=== PATIENT | male | born 1940 | race Caucasian/White ===

== ENCOUNTER 2021-08-08 12:47 | Inpatient (IN) ==
[2021-08-08] MEDS ORDERED: SODIUM CHLORIDE 0.9% 1,000 ML IV STA (13:10)
[2021-08-08 13:20] LABS: Basophils # 0.1 10*3/uL (0.0-0.2); Basophils % 0.4 % (0.0-0.8); Eosinophils # 1.4 10*3/uL (0.0-0.87); Eosinophils % 12.6 % (0.00-10.9); Hematocrit 37.7 VOL% (42.0-52.0); Hemoglobin 12.5 GM/DL (14.0-18.0); Immature Granulocytes % 1.6 %; Immature Granulocytes Absolute 0.18 #; Lymphocytes # 1.4 10*3/uL (1.4-4.0); Lymphocytes % 12.7 % (21.2-54.2); Mean Corpuscular HGB Conc 33.2 GM/DL (32-36); Mean Corpuscular Volume 97.9 FL (87-102); Mean Platelet Volume 9.7 FL (9.6-12.0); Monocytes % 9.2 % (1.7-12.7); Neutrophils % 63.5 % (38.7-73.9); Platelet Count 493 T/CUMM (130-400); Red Blood Count 3.85 MC/CUMM (3.8-5.5); Red Cell Distribution Width 14.6 % (9.3-17.3); White Blood Count 11.3 T/CUMM (4-12)
[2021-08-08 13:32] LABS: INR 1.1; Partial Thromboplastin Time 28.1 SECS (23.8-32.1)
[2021-08-08 13:50] LABS: Eosinophils 12 % (0-10); Lymphocytes 11 % (20-55); Total Cells Counted 100
[2021-08-08 13:51] LABS: Albumin 2.9 G/DL (3.4-5.0); Bilirubin,Total 0.5 MG/DL (0.20-1.00); Calcium 9.8 MG/DL (8.5-10.1); Osmolality,Calculated 280.4 MOS/KG (273-304); Potassium 3.6 MMOL/L (3.5-5.1); Total Protein 7.1 G/DL (6.4-8.2)
[2021-08-08 13:53] LABS: Platelet Estimate Increased; Reactive Lymphocytes Slight
[2021-08-08 13:59] LABS: Mucus,Urine Occasional /LPF (Occasional); RBC,Urine 44 /HPF (0-4); Squamous Epithelial Cell,Urine Occasional /HPF (0-10)
[2021-08-08] MEDS ORDERED: ONDANSETRON 4 MG/2 ML VIAL IV PRN (14:02)
[2021-08-08 14:03] LABS: Bilirubin,Urine Negative (Negative); Blood, Urine Negative (Negative); Glucose,Urine (UA) Negative (Negative); Ketones,Urine Negative (Negative); Nitrite,Urine Negative (Negative); Protein,Urine Negative (Negative); Urine Appearance Clear (Clear); Urine Color Yellow (Yellow); Urine Urobilinogen 0.2 eU/dL (<2.0)
[2021-08-08 14:24] LABS: Barbiturates Screen,Urine Negative (Negative); Benzodiazepines Screen,Urine Negative (Negative); Cannabinoid Screen,Urine Negative (Negative); Opiate Screen,Urine Positive (Negative); Phencyclidine Screen,Urine Negative (Negative)
[2021-08-08] MEDS ORDERED: POLYCARBOPHIL 625 MG TABLET PO PRN (14:34)
[2021-08-08] MEDS: SODIUM CHLORIDE 0.9% 1,000 ML IV SCH ×2 (14:59→23:55)
[2021-08-08] MEDS ORDERED: ZIPRASIDONE 20 MG/1 ML VIAL IM STA (15:36)
[2021-08-08] MEDS: TAMSULOSIN 0.4 MG CAPSULE PO SCH (20:22)
[2021-08-08] MEDS: DOCUSATE SODIUM 100 MG CAPSULE PO SCH (20:22)
[2021-08-08] MEDS: ATORVASTATIN 10 MG TABLET PO SCH (20:22)
[2021-08-08] MEDS: METOPROLOL TARTRATE 50 MG TABLET PO SCH (20:23)
[2021-08-08] MEDS ORDERED: QUEtiapine 25 MG TABLET PO SCH (21:00)
[2021-08-08] MEDS: VITAMIN E 1000 UNIT CAPSULE PO SCH (22:16)
[2021-08-08] MEDS: ZIPRASIDONE 20 MG/1 ML VIAL IM PRN (23:14)
[2021-08-09] MEDS: HALOPERIDOL 5 MG/ML AMP IM PRN ×2 (01:44→11:46)
[2021-08-09 04:37] LABS: Basophils # 0.1 10*3/uL (0.0-0.2); Basophils % 0.5 % (0.0-0.8); Eosinophils # 1.8 10*3/uL (0.0-0.87); Eosinophils % 20.1 % (0.00-10.9); Hematocrit 35.1 VOL% (42.0-52.0); Hemoglobin 11.4 GM/DL (14.0-18.0); Immature Granulocytes Absolute 0.18 #; Lymphocytes # 2.1 10*3/uL (1.4-4.0); Lymphocytes % 23.4 % (21.2-54.2); Mean Corpuscular HGB Conc 32.5 GM/DL (32-36); Mean Corpuscular Volume 99.2 FL (87-102); Mean Platelet Volume 9.9 FL (9.6-12.0); Monocytes # 0.8 10*3/uL (0.11-0.8); Monocytes % 8.9 % (1.7-12.7); Neutrophils % 45.1 % (38.7-73.9); Platelet Count 398 T/CUMM (130-400); Red Blood Count 3.54 MC/CUMM (3.8-5.5); Red Cell Distribution Width 14.7 % (9.3-17.3); White Blood Count 9.1 T/CUMM (4-12)
[2021-08-09 04:57] LABS: Osmolality,Calculated 292.4 MOS/KG (273-304); Potassium 3.9 MMOL/L (3.5-5.1)
[2021-08-09 04:58] LABS: Atypical Lymphocytes Few; Eosinophils 21 % (0-10); Lymphocytes 23 % (20-55); Total Cells Counted 100
[2021-08-09 04:59] LABS: Platelet Estimate Normal
[2021-08-09] MEDS ORDERED: PANTOPRAZOLE 40 MG TABLET PO SCH (06:30)
[2021-08-09] MEDS: SODIUM CHLORIDE 0.9% 1,000 ML IV SCH ×2 (08:45→17:00)
[2021-08-09] MEDS: METOPROLOL TARTRATE 50 MG TABLET PO SCH ×2 (08:46→20:52)
[2021-08-09] MEDS: MULTIVITAMIN (CENTRUM) TABLET PO SCH (08:46)
[2021-08-09] MEDS: CALCIUM (CARBONATE)/VITAMIN D 600 MG-400 UNIT TABLET PO SCH (08:46)
[2021-08-09] MEDS: SERTRALINE 50 MG TABLET PO SCH (08:46)
[2021-08-09] MEDS: ASCORBIC ACID 500 MG TABLET PO SCH (08:46)
[2021-08-09] MEDS: QUEtiapine 25 MG TABLET PO SCH ×2 (08:46→20:52)
[2021-08-09] MEDS: ASPIRIN EC 81 MG TABLET PO SCH (08:46)
[2021-08-09] MEDS: DOCUSATE SODIUM 100 MG CAPSULE PO SCH ×2 (08:46→20:52)
[2021-08-09] MEDS ORDERED: NON-FORMULARY MEDICATION (Omeprazole 20 MG capsule,delayed release(DR/EC)) PO SCH (09:00)
[2021-08-09] MEDS: VITAMIN E 1000 UNIT CAPSULE PO SCH ×2 (10:18→21:00)
[2021-08-09] MEDS: ACETAMINOPHEN 325 MG TABLET PO PRN (10:39)
[2021-08-09] MEDS: ZIPRASIDONE 20 MG/1 ML VIAL IM PRN (18:39)
[2021-08-09] MEDS: TAMSULOSIN 0.4 MG CAPSULE PO SCH (20:52)
[2021-08-09] MEDS: ATORVASTATIN 10 MG TABLET PO SCH (20:52)
[2021-08-10] MEDS: SODIUM CHLORIDE 0.9% 1,000 ML IV SCH ×2 (01:45→09:52)
[2021-08-10] MEDS: ASPIRIN EC 81 MG TABLET PO SCH (09:50)
[2021-08-10] MEDS: CALCIUM (CARBONATE)/VITAMIN D 600 MG-400 UNIT TABLET PO SCH (09:51)
[2021-08-10] MEDS: METOPROLOL TARTRATE 50 MG TABLET PO SCH ×2 (09:51→20:57)
[2021-08-10] MEDS: MULTIVITAMIN (CENTRUM) TABLET PO SCH (09:51)
[2021-08-10] MEDS: ASCORBIC ACID 500 MG TABLET PO SCH (09:51)
[2021-08-10] MEDS: QUEtiapine 25 MG TABLET PO SCH ×2 (09:51→20:57)
[2021-08-10] MEDS: DOCUSATE SODIUM 100 MG CAPSULE PO SCH ×2 (09:51→20:58)
[2021-08-10] MEDS: SERTRALINE 50 MG TABLET PO SCH (09:51)
[2021-08-10] MEDS: methylPREDNISolone SOD SUC 40 MG/1 ML VIAL IV SCH (09:52)
[2021-08-10] MEDS: VITAMIN E 1000 UNIT CAPSULE PO SCH ×2 (10:58→20:59)
[2021-08-10] MEDS ORDERED: BISACODYL 10 MG SUPP RECTAL ONE (13:00)
[2021-08-10] MEDS: ACETAMINOPHEN 325 MG TABLET PO PRN (15:50)
[2021-08-10] MEDS: ALUMINUM/MAGNES/SIMETH MAX STR 30 ML UDCUP PO PRN (18:38)
[2021-08-10] MEDS: ATORVASTATIN 10 MG TABLET PO SCH (20:58)
[2021-08-10] MEDS: TAMSULOSIN 0.4 MG CAPSULE PO SCH (20:58)
[2021-08-10] MEDS: APIXABAN 5 MG TABLET PO SCH (20:59)
[2021-08-11] MEDS: ALUMINUM/MAGNES/SIMETH MAX STR 30 ML UDCUP PO PRN (03:34)
[2021-08-11] MEDS: METOPROLOL TARTRATE 50 MG TABLET PO SCH ×2 (09:45→21:11)
[2021-08-11] MEDS: CALCIUM (CARBONATE)/VITAMIN D 600 MG-400 UNIT TABLET PO SCH (09:45)
[2021-08-11] MEDS: APIXABAN 5 MG TABLET PO SCH ×2 (09:45→21:11)
[2021-08-11] MEDS: MULTIVITAMIN (CENTRUM) TABLET PO SCH (09:45)
[2021-08-11] MEDS: DOCUSATE SODIUM 100 MG CAPSULE PO SCH ×2 (09:46→21:11)
[2021-08-11] MEDS: ASPIRIN EC 81 MG TABLET PO SCH (09:46)
[2021-08-11] MEDS: QUEtiapine 25 MG TABLET PO SCH ×2 (09:46→21:12)
[2021-08-11] MEDS: SERTRALINE 50 MG TABLET PO SCH (09:46)
[2021-08-11] MEDS: ASCORBIC ACID 500 MG TABLET PO SCH (09:47)
[2021-08-11] MEDS: methylPREDNISolone SOD SUC 40 MG/1 ML VIAL IV SCH (10:12)
[2021-08-11] MEDS: VITAMIN E 1000 UNIT CAPSULE PO SCH ×2 (10:13→21:16)
[2021-08-11] MEDS ORDERED: TUBERCULIN SKIN TEST 0.1 ML SYRINGE INTRADERM ONE (13:10)
[2021-08-11] MEDS: ATORVASTATIN 10 MG TABLET PO SCH (21:11)
[2021-08-11] MEDS: TAMSULOSIN 0.4 MG CAPSULE PO SCH (21:12)
[2021-08-12 05:14] LABS: Basophils # 0.1 10*3/uL (0.0-0.2); Basophils % 0.6 % (0.0-0.8); Eosinophils # 2.9 10*3/uL (0.0-0.87); Eosinophils % 20.4 % (0.00-10.9); Hematocrit 35.3 VOL% (42.0-52.0); Hemoglobin 11.5 GM/DL (14.0-18.0); Immature Granulocytes Absolute 0.14 #; Lymphocytes # 2.2 10*3/uL (1.4-4.0); Lymphocytes % 15.1 % (21.2-54.2); Mean Corpuscular HGB Conc 32.6 GM/DL (32-36); Mean Corpuscular Volume 98.9 FL (87-102); Mean Platelet Volume 9.9 FL (9.6-12.0); Monocytes # 1.3 10*3/uL (0.11-0.8); Monocytes % 8.9 % (1.7-12.7); Platelet Count 426 T/CUMM (130-400); Red Blood Count 3.57 MC/CUMM (3.8-5.5); Red Cell Distribution Width 14.5 % (9.3-17.3); White Blood Count 14.3 T/CUMM (4-12)
[2021-08-12 05:33] LABS: Calcium 9.2 MG/DL (8.5-10.1); Osmolality,Calculated 287.8 MOS/KG (273-304); Potassium 4.1 MMOL/L (3.5-5.1)
[2021-08-12 05:38] LABS: Eosinophils 24 % (0-10); Lymphocytes 10 % (20-55); Total Cells Counted 100
[2021-08-12 05:39] LABS: Platelet Estimate Normal
[2021-08-12 07:31] VITALS: BP 157/74
[2021-08-12] MEDS: MULTIVITAMIN (CENTRUM) TABLET PO SCH (08:34)
[2021-08-12] MEDS: ASCORBIC ACID 500 MG TABLET PO SCH (08:34)
[2021-08-12] MEDS: METOPROLOL TARTRATE 50 MG TABLET PO SCH (08:34)
[2021-08-12] MEDS: CALCIUM (CARBONATE)/VITAMIN D 600 MG-400 UNIT TABLET PO SCH (08:34)
[2021-08-12] MEDS: DOCUSATE SODIUM 100 MG CAPSULE PO SCH (08:34)
[2021-08-12] MEDS: APIXABAN 5 MG TABLET PO SCH (08:34)
[2021-08-12] MEDS: ASPIRIN EC 81 MG TABLET PO SCH (08:34)
[2021-08-12] MEDS: SERTRALINE 50 MG TABLET PO SCH (08:34)
[2021-08-12] MEDS: VITAMIN E 1000 UNIT CAPSULE PO SCH (08:46)
[2021-08-12] MEDS ORDERED: QUEtiapine 25 MG TABLET PO SCH (09:00)
[2021-08-12] MEDS ORDERED: predniSONE 10 MG TABLET PO SCH (09:00)
[2021-08-12] MEDS ORDERED: FAMOTIDINE 20 MG TABLET PO SCH (09:30)
== END 2021-08-12 10:26 | DRG 56 ==
LOC: N.ED 12:47 → SUATTDRO 14:01 → N.5E 14:01
PROVIDERS: ADMIT Internal Medicine; ATTEND Internal Medicine

== ENCOUNTER 2021-11-07 15:22 | Inpatient (IN) ==
[2021-11-07 16:51] LABS: Basophils % 0.1 % (0.0-0.8); Hematocrit 37.8 VOL% (42.0-52.0); Hemoglobin 12.4 GM/DL (14.0-18.0); Immature Granulocytes % 0.6 %; Immature Granulocytes Absolute 0.08 #; Lymphocytes % 7.3 % (21.2-54.2); Mean Corpuscular HGB Conc 32.8 GM/DL (32-36); Mean Corpuscular Volume 96.9 FL (87-102); Mean Platelet Volume 10.4 FL (9.6-12.0); Monocytes # 1.4 10*3/uL (0.11-0.8); Monocytes % 10.1 % (1.7-12.7); Neutrophils % 81.9 % (38.7-73.9); Platelet Count 241 T/CUMM (130-400); Red Cell Distribution Width 13.2 % (9.3-17.3); White Blood Count 14.2 T/CUMM (4-12)
[2021-11-07 17:17] LABS: Albumin 2.5 G/DL (3.4-5.0); Bilirubin,Total 1.2 MG/DL (0.20-1.00); Calcium 9.4 MG/DL (8.5-10.1); Osmolality,Calculated 280.7 MOS/KG (273-304); Potassium 4.1 MMOL/L (3.5-5.1); Total Protein 7.3 G/DL (6.4-8.2)
[2021-11-07 17:19] LABS: Bilirubin,Urine Negative (Negative); Blood, Urine Moderate mg/dL (Negative); Glucose,Urine (UA) Negative (Negative); Ketones,Urine Negative (Negative); Nitrite,Urine Negative (Negative); Protein,Urine Trace mg/dL (Negative); Urine Appearance Clear (Clear); Urine Color Yellow (Yellow); Urine Urobilinogen 0.2 eU/dL (<2.0); Urine pH 5.5 (4.5-8.0)
[2021-11-07 17:20] LABS: Hyaline Casts,Urine 1 /LPF (0-3); Mucus,Urine Occasional /LPF (Occasional); RBC,Urine 14 /HPF (0-4)
[2021-11-07] MEDS ORDERED: CLINDAMYCIN INJ 900 MG/50 ML PREMIX IV STA (17:53)
[2021-11-07] MEDS ORDERED: MORPHINE 2 MG/1 ML SYRINGE ONE (18:17)
[2021-11-07] MEDS ORDERED: ONDANSETRON 4 MG/2 ML VIAL IV STA (18:17)
[2021-11-07] MEDS ORDERED: ONDANSETRON 4 MG/2 ML VIAL ONE (18:17)
[2021-11-07] MEDS ORDERED: MORPHINE 2 MG/1 ML SYRINGE IV STA (18:17)
[2021-11-07] MEDS ORDERED: GLUCAGON 1 MG VIAL IM PRN (18:32)
[2021-11-07] MEDS ORDERED: DEXTROSE 10% 250 ML BAG IV PRN (18:32)
[2021-11-07] MEDS ORDERED: DOCUSATE SODIUM 100 MG CAPSULE PO PRN (18:33)
[2021-11-07] MEDS ORDERED: ONDANSETRON 4 MG/2 ML VIAL IV PRN (18:33)
[2021-11-07] MEDS: LINEZOLID INJ 600 MG/300 ML PREMIX IV SCH (21:10)
[2021-11-07] MEDS: TAMSULOSIN 0.4 MG CAPSULE PO SCH (22:15)
[2021-11-07] MEDS: clonazePAM 0.5 MG TABLET PO SCH (22:15)
[2021-11-07] MEDS: DIVALPROEX SPRINKLE 125 MG CAPSULE PO SCH (22:15)
[2021-11-08 04:23] LABS: Basophils % 0.2 % (0.0-0.8); Eosinophils % 0.3 % (0.00-10.9); Hematocrit 36.8 VOL% (42.0-52.0); Hemoglobin 11.9 GM/DL (14.0-18.0); Immature Granulocytes % 0.5 %; Immature Granulocytes Absolute 0.06 #; Lymphocytes # 1.3 10*3/uL (1.4-4.0); Lymphocytes % 11.7 % (21.2-54.2); Mean Corpuscular HGB Conc 32.3 GM/DL (32-36); Mean Corpuscular Volume 99.7 FL (87-102); Mean Platelet Volume 10.2 FL (9.6-12.0); Monocytes # 1.1 10*3/uL (0.11-0.8); Monocytes % 10.2 % (1.7-12.7); Neutrophils % 77.1 % (38.7-73.9); Platelet Count 222 T/CUMM (130-400); Red Blood Count 3.69 MC/CUMM (3.8-5.5); Red Cell Distribution Width 13.1 % (9.3-17.3); White Blood Count 11.2 T/CUMM (4-12)
[2021-11-08 04:37] LABS: Osmolality,Calculated 280.7 MOS/KG (273-304)
[2021-11-08] MEDS: ASPIRIN EC 81 MG TABLET PO SCH (09:17)
[2021-11-08] MEDS: LINEZOLID INJ 600 MG/300 ML PREMIX IV SCH ×2 (09:18→20:33)
[2021-11-08] MEDS: clonazePAM 0.5 MG TABLET PO SCH ×2 (09:18→20:32)
[2021-11-08] MEDS: predniSONE 10 MG TABLET PO SCH (09:18)
[2021-11-08] MEDS: DIVALPROEX SPRINKLE 125 MG CAPSULE PO SCH ×2 (09:18→20:32)
[2021-11-08] MEDS: TAMSULOSIN 0.4 MG CAPSULE PO SCH (20:32)
[2021-11-08] MEDS: ACETAMINOPHEN 325 MG TABLET PO PRN (20:33)
[2021-11-09 06:12] LABS: Basophils % 0.2 % (0.0-0.8); Eosinophils # 0.1 10*3/uL (0.0-0.87); Hemoglobin 11.5 GM/DL (14.0-18.0); Immature Granulocytes % 0.6 %; Immature Granulocytes Absolute 0.06 #; Lymphocytes # 1.4 10*3/uL (1.4-4.0); Lymphocytes % 14.1 % (21.2-54.2); Mean Corpuscular HGB Conc 31.9 GM/DL (32-36); Mean Corpuscular Volume 100.6 FL (87-102); Mean Platelet Volume 9.7 FL (9.6-12.0); Monocytes # 0.9 10*3/uL (0.11-0.8); Monocytes % 9.7 % (1.7-12.7); Neutrophils % 74.4 % (38.7-73.9); Platelet Count 216 T/CUMM (130-400); Red Blood Count 3.58 MC/CUMM (3.8-5.5); Red Cell Distribution Width 12.8 % (9.3-17.3); White Blood Count 9.6 T/CUMM (4-12)
[2021-11-09 06:31] LABS: Calcium 8.9 MG/DL (8.5-10.1); Osmolality,Calculated 281.5 MOS/KG (273-304); Potassium 3.6 MMOL/L (3.5-5.1)
[2021-11-09] MEDS: predniSONE 10 MG TABLET PO SCH (08:31)
[2021-11-09] MEDS: DIVALPROEX SPRINKLE 125 MG CAPSULE PO SCH ×2 (08:31→20:54)
[2021-11-09] MEDS: clonazePAM 0.5 MG TABLET PO SCH ×2 (08:32→20:54)
[2021-11-09] MEDS: ASPIRIN EC 81 MG TABLET PO SCH (08:32)
[2021-11-09] MEDS: VANCOMYCIN INJ 1,500 MG in SODIUM CHLORIDE 0.9% 500 ML IV SCH (08:33)
[2021-11-09] MEDS: TAMSULOSIN 0.4 MG CAPSULE PO SCH (20:54)
[2021-11-10 06:16] LABS: Basophils % 0.2 % (0.0-0.8); Eosinophils # 0.2 10*3/uL (0.0-0.87); Eosinophils % 1.9 % (0.00-10.9); Hematocrit 38.2 VOL% (42.0-52.0); Hemoglobin 12.2 GM/DL (14.0-18.0); Immature Granulocytes % 0.5 %; Immature Granulocytes Absolute 0.04 #; Lymphocytes # 1.3 10*3/uL (1.4-4.0); Lymphocytes % 15.3 % (21.2-54.2); Mean Corpuscular HGB Conc 31.9 GM/DL (32-36); Mean Platelet Volume 9.6 FL (9.6-12.0); Monocytes # 0.9 10*3/uL (0.11-0.8); Monocytes % 10.3 % (1.7-12.7); Neutrophils % 71.8 % (38.7-73.9); Platelet Count 251 T/CUMM (130-400); Red Blood Count 3.86 MC/CUMM (3.8-5.5); Red Cell Distribution Width 12.9 % (9.3-17.3); White Blood Count 8.2 T/CUMM (4-12)
[2021-11-10 06:44] LABS: Calcium 8.7 MG/DL (8.5-10.1); Osmolality,Calculated 280.5 MOS/KG (273-304); Potassium 3.6 MMOL/L (3.5-5.1)
[2021-11-10] MEDS: ACETAMINOPHEN 325 MG TABLET PO PRN (07:08)
[2021-11-10] MEDS ORDERED: BISACODYL 5 MG TABLET PO PRN (09:37)
[2021-11-10] MEDS ORDERED: MELATONIN 3 MG TABLET PO PRN (09:37)
[2021-11-10] MEDS: DIVALPROEX SPRINKLE 125 MG CAPSULE PO SCH ×2 (09:47→21:01)
[2021-11-10] MEDS: ASPIRIN EC 81 MG TABLET PO SCH (09:47)
[2021-11-10] MEDS: clonazePAM 0.5 MG TABLET PO SCH ×2 (09:47→21:01)
[2021-11-10] MEDS: VANCOMYCIN INJ 1,500 MG in SODIUM CHLORIDE 0.9% 500 ML IV SCH (09:47)
[2021-11-10] MEDS: predniSONE 10 MG TABLET PO SCH (09:47)
[2021-11-10] MEDS: FAMOTIDINE 20 MG TABLET PO SCH (17:06)
[2021-11-10] MEDS: TAMSULOSIN 0.4 MG CAPSULE PO SCH (21:01)
[2021-11-10] MEDS: POLYCARBOPHIL 625 MG TABLET PO SCH (21:01)
[2021-11-10] MEDS: GABAPENTIN 100 MG CAPSULE PO SCH (21:01)
[2021-11-10] MEDS: APIXABAN 5 MG TABLET PO SCH (21:02)
[2021-11-11 04:59] LABS: Basophils % 0.2 % (0.0-0.8); Eosinophils # 0.1 10*3/uL (0.0-0.87); Eosinophils % 1.7 % (0.00-10.9); Hematocrit 37.3 VOL% (42.0-52.0); Hemoglobin 12.1 GM/DL (14.0-18.0); Immature Granulocytes % 0.6 %; Immature Granulocytes Absolute 0.05 #; Lymphocytes # 1.3 10*3/uL (1.4-4.0); Lymphocytes % 15.2 % (21.2-54.2); Mean Corpuscular HGB Conc 32.4 GM/DL (32-36); Mean Corpuscular Volume 98.2 FL (87-102); Mean Platelet Volume 9.7 FL (9.6-12.0); Monocytes # 0.8 10*3/uL (0.11-0.8); Monocytes % 9.7 % (1.7-12.7); Neutrophils % 72.6 % (38.7-73.9); Platelet Count 286 T/CUMM (130-400); White Blood Count 8.5 T/CUMM (4-12)
[2021-11-11 05:27] LABS: Calcium 8.8 MG/DL (8.5-10.1); Osmolality,Calculated 285.3 MOS/KG (273-304)
[2021-11-11] MEDS: DIVALPROEX SPRINKLE 125 MG CAPSULE PO SCH ×2 (08:47→20:34)
[2021-11-11] MEDS: predniSONE 10 MG TABLET PO SCH (08:47)
[2021-11-11] MEDS: ASCORBIC ACID 500 MG TABLET PO SCH (08:47)
[2021-11-11] MEDS: POLYCARBOPHIL 625 MG TABLET PO SCH ×2 (08:47→20:34)
[2021-11-11] MEDS: SERTRALINE 50 MG TABLET PO SCH (08:47)
[2021-11-11] MEDS: APIXABAN 5 MG TABLET PO SCH ×2 (08:47→20:33)
[2021-11-11] MEDS: ASPIRIN EC 81 MG TABLET PO SCH (08:47)
[2021-11-11] MEDS: clonazePAM 0.5 MG TABLET PO SCH ×2 (08:48→20:34)
[2021-11-11] MEDS: CALCIUM (CARBONATE)/VITAMIN D 600 MG-400 UNIT TABLET PO SCH (08:48)
[2021-11-11] MEDS: FAMOTIDINE 20 MG TABLET PO SCH ×2 (08:48→16:56)
[2021-11-11] MEDS ORDERED: ATORVASTATIN 10 MG TABLET PO SCH (09:00)
[2021-11-11] MEDS: VANCOMYCIN INJ 1,500 MG in SODIUM CHLORIDE 0.9% 500 ML IV SCH (09:56)
[2021-11-11 11:44] LABS: INR 1.1; PT Patient Result 11.6 SECS (10.1-12.1); Partial Thromboplastin Time 34.4 SECS (23.7-32.9)
[2021-11-11] MEDS: GABAPENTIN 100 MG CAPSULE PO SCH (20:34)
[2021-11-11] MEDS: TAMSULOSIN 0.4 MG CAPSULE PO SCH (20:34)
[2021-11-12 05:50] LABS: Basophils % 0.3 % (0.0-0.8); Eosinophils # 0.2 10*3/uL (0.0-0.87); Eosinophils % 2.5 % (0.00-10.9); Hemoglobin 12.6 GM/DL (14.0-18.0); Immature Granulocytes % 0.9 %; Immature Granulocytes Absolute 0.09 #; Lymphocytes # 1.7 10*3/uL (1.4-4.0); Lymphocytes % 17.9 % (21.2-54.2); Mean Corpuscular HGB Conc 32.3 GM/DL (32-36); Mean Corpuscular Volume 97.7 FL (87-102); Mean Platelet Volume 9.5 FL (9.6-12.0); Neutrophils % 68.4 % (38.7-73.9); Platelet Count 340 T/CUMM (130-400); Red Blood Count 3.99 MC/CUMM (3.8-5.5); Red Cell Distribution Width 12.9 % (9.3-17.3); White Blood Count 9.7 T/CUMM (4-12)
[2021-11-12 06:11] LABS: Calcium 9.6 MG/DL (8.5-10.1); Osmolality,Calculated 283.3 MOS/KG (273-304); Potassium 3.6 MMOL/L (3.5-5.1)
[2021-11-12] MEDS: SERTRALINE 50 MG TABLET PO SCH (09:21)
[2021-11-12] MEDS: clonazePAM 0.5 MG TABLET PO SCH ×2 (09:21→21:11)
[2021-11-12] MEDS: POLYCARBOPHIL 625 MG TABLET PO SCH ×2 (09:21→21:11)
[2021-11-12] MEDS: predniSONE 10 MG TABLET PO SCH (09:22)
[2021-11-12] MEDS: APIXABAN 5 MG TABLET PO SCH ×2 (09:22→21:11)
[2021-11-12] MEDS: ASCORBIC ACID 500 MG TABLET PO SCH (09:22)
[2021-11-12] MEDS: FAMOTIDINE 20 MG TABLET PO SCH ×2 (09:22→16:15)
[2021-11-12] MEDS: ASPIRIN EC 81 MG TABLET PO SCH (09:22)
[2021-11-12] MEDS: DIVALPROEX SPRINKLE 125 MG CAPSULE PO SCH ×2 (09:22→21:11)
[2021-11-12] MEDS: CALCIUM (CARBONATE)/VITAMIN D 600 MG-400 UNIT TABLET PO SCH (09:22)
[2021-11-12] MEDS: TAMSULOSIN 0.4 MG CAPSULE PO SCH (21:11)
[2021-11-12] MEDS: GABAPENTIN 100 MG CAPSULE PO SCH (21:12)
[2021-11-13 06:07] LABS: Basophils % 0.3 % (0.0-0.8); Eosinophils # 0.2 10*3/uL (0.0-0.87); Eosinophils % 1.4 % (0.00-10.9); Hematocrit 38.2 VOL% (42.0-52.0); Hemoglobin 12.3 GM/DL (14.0-18.0); Immature Granulocytes % 0.9 %; Lymphocytes # 1.9 10*3/uL (1.4-4.0); Lymphocytes % 16.8 % (21.2-54.2); Mean Corpuscular HGB Conc 32.2 GM/DL (32-36); Mean Corpuscular Volume 98.7 FL (87-102); Mean Platelet Volume 9.4 FL (9.6-12.0); Monocytes % 9.1 % (1.7-12.7); Neutrophils % 71.5 % (38.7-73.9); Platelet Count 421 T/CUMM (130-400); Red Blood Count 3.87 MC/CUMM (3.8-5.5); Red Cell Distribution Width 12.9 % (9.3-17.3)
[2021-11-13 06:47] LABS: Calcium 9.4 MG/DL (8.5-10.1); Osmolality,Calculated 284.3 MOS/KG (273-304); Potassium 3.8 MMOL/L (3.5-5.1)
[2021-11-13] MEDS: clonazePAM 0.5 MG TABLET PO SCH ×2 (08:48→21:11)
[2021-11-13] MEDS: CALCIUM (CARBONATE)/VITAMIN D 600 MG-400 UNIT TABLET PO SCH (08:48)
[2021-11-13] MEDS: ASCORBIC ACID 500 MG TABLET PO SCH (08:48)
[2021-11-13] MEDS: DIVALPROEX SPRINKLE 125 MG CAPSULE PO SCH ×2 (08:48→21:11)
[2021-11-13] MEDS: APIXABAN 5 MG TABLET PO SCH ×2 (08:48→21:12)
[2021-11-13] MEDS: SERTRALINE 50 MG TABLET PO SCH (08:48)
[2021-11-13] MEDS: ASPIRIN EC 81 MG TABLET PO SCH (08:48)
[2021-11-13] MEDS: predniSONE 10 MG TABLET PO SCH (08:48)
[2021-11-13] MEDS: FAMOTIDINE 20 MG TABLET PO SCH ×2 (08:49→16:39)
[2021-11-13] MEDS: POLYCARBOPHIL 625 MG TABLET PO SCH ×2 (08:49→21:11)
[2021-11-13] MEDS: TAMSULOSIN 0.4 MG CAPSULE PO SCH (21:12)
[2021-11-13] MEDS: GABAPENTIN 100 MG CAPSULE PO SCH (21:12)
[2021-11-14 06:41] LABS: Basophils % 0.4 % (0.0-0.8); Eosinophils # 0.3 10*3/uL (0.0-0.87); Eosinophils % 2.9 % (0.00-10.9); Hematocrit 39.1 VOL% (42.0-52.0); Hemoglobin 12.6 GM/DL (14.0-18.0); Immature Granulocytes % 1.4 %; Immature Granulocytes Absolute 0.13 #; Lymphocytes % 21.5 % (21.2-54.2); Mean Corpuscular HGB Conc 32.2 GM/DL (32-36); Mean Corpuscular Volume 98.2 FL (87-102); Mean Platelet Volume 9.5 FL (9.6-12.0); Monocytes % 10.3 % (1.7-12.7); Neutrophils % 63.5 % (38.7-73.9); Platelet Count 459 T/CUMM (130-400); Red Blood Count 3.98 MC/CUMM (3.8-5.5); Red Cell Distribution Width 12.7 % (9.3-17.3); White Blood Count 9.4 T/CUMM (4-12)
[2021-11-14 06:51] LABS: Calcium 9.5 MG/DL (8.5-10.1); Osmolality,Calculated 280.5 MOS/KG (273-304); Potassium 3.6 MMOL/L (3.5-5.1)
[2021-11-14] MEDS: FAMOTIDINE 20 MG TABLET PO SCH ×2 (08:15→17:26)
[2021-11-14] MEDS: DIVALPROEX SPRINKLE 125 MG CAPSULE PO SCH ×2 (08:37→21:05)
[2021-11-14] MEDS: POLYCARBOPHIL 625 MG TABLET PO SCH ×2 (08:37→21:05)
[2021-11-14] MEDS: APIXABAN 5 MG TABLET PO SCH ×2 (08:37→21:05)
[2021-11-14] MEDS: clonazePAM 0.5 MG TABLET PO SCH ×2 (08:37→21:06)
[2021-11-14] MEDS: ASPIRIN EC 81 MG TABLET PO SCH (08:37)
[2021-11-14] MEDS: predniSONE 10 MG TABLET PO SCH (08:37)
[2021-11-14] MEDS: CALCIUM (CARBONATE)/VITAMIN D 600 MG-400 UNIT TABLET PO SCH (08:37)
[2021-11-14] MEDS: ASCORBIC ACID 500 MG TABLET PO SCH (08:38)
[2021-11-14] MEDS: SERTRALINE 50 MG TABLET PO SCH (08:38)
[2021-11-14] MEDS: HYDROCORTISONE 1% CREAM 28 GM TUBE TOP SCH (21:06)
[2021-11-14] MEDS: TAMSULOSIN 0.4 MG CAPSULE PO SCH (21:06)
[2021-11-14] MEDS: GABAPENTIN 100 MG CAPSULE PO SCH (21:06)
[2021-11-15 05:22] LABS: Basophils % 0.4 % (0.0-0.8); Eosinophils # 0.3 10*3/uL (0.0-0.87); Eosinophils % 2.7 % (0.00-10.9); Hematocrit 40.4 VOL% (42.0-52.0); Hemoglobin 12.9 GM/DL (14.0-18.0); Immature Granulocytes % 1.3 %; Immature Granulocytes Absolute 0.13 #; Lymphocytes # 2.3 10*3/uL (1.4-4.0); Lymphocytes % 22.9 % (21.2-54.2); Mean Corpuscular HGB Conc 31.9 GM/DL (32-36); Mean Platelet Volume 9.4 FL (9.6-12.0); Monocytes # 1.2 10*3/uL (0.11-0.8); Monocytes % 11.9 % (1.7-12.7); Neutrophils % 60.8 % (38.7-73.9); Platelet Count 490 T/CUMM (130-400); Red Blood Count 4.08 MC/CUMM (3.8-5.5); Red Cell Distribution Width 12.7 % (9.3-17.3); White Blood Count 9.9 T/CUMM (4-12)
[2021-11-15 05:38] LABS: Calcium 9.3 MG/DL (8.5-10.1); Osmolality,Calculated 279.5 MOS/KG (273-304)
[2021-11-15] MEDS: APIXABAN 5 MG TABLET PO SCH (09:46)
[2021-11-15] MEDS: DIVALPROEX SPRINKLE 125 MG CAPSULE PO SCH (09:46)
[2021-11-15] MEDS: POLYCARBOPHIL 625 MG TABLET PO SCH (09:46)
[2021-11-15] MEDS: predniSONE 10 MG TABLET PO SCH (09:47)
[2021-11-15] MEDS: SERTRALINE 50 MG TABLET PO SCH (09:47)
[2021-11-15] MEDS: ASPIRIN EC 81 MG TABLET PO SCH (09:47)
[2021-11-15] MEDS: ASCORBIC ACID 500 MG TABLET PO SCH (09:47)
[2021-11-15] MEDS: FAMOTIDINE 20 MG TABLET PO SCH (09:47)
[2021-11-15] MEDS: CALCIUM (CARBONATE)/VITAMIN D 600 MG-400 UNIT TABLET PO SCH (09:47)
[2021-11-15] MEDS: HYDROCORTISONE 1% CREAM 28 GM TUBE TOP SCH (09:48)
[2021-11-15 11:15] VITALS: BP 146/70
== END 2021-11-15 16:30 | DRG 872 ==
LOC: EDUNIT# → EDBD → N.ED 15:22 → SUATTDRO 18:32 → N.EDINP 18:32 → N.3E 11-08 12:45
PROVIDERS: ADMIT Internal Medicine Geriatric Medicine; ATTEND Hospitalist